=== PATIENT | female | born 1960 | race Caucasian/White ===

== ENCOUNTER 2025-04-07 09:39 | Day surgery (SDC) | payer OTHER ==
[2025-04-07] VITALS (21 sets, daily range): BP systolic 96–155; BP diastolic 55–108
[~2025-04-07] VITALS: Ht 172.7 cm; Wt 81.2 kg
[~2025-04-07 09:39] MED LIST: DOCU100 PO; FERSU300 PO; HYDHCL25 PO; MIRALAX17 GM PO; MULVITA PO; Percocet 5-3251 EACH PO; Prinivil10 MG PO; VALACYCLOVIR1000 MG PO; VENL37.5 PO; VENL75ER PO
--- NOTE | 2025-04-07 11:39 | NUR ---
PRE PROCEDURE NOTE PT A&OX4, BREATHING RA, VSS, NO COMPLAINTS. Ambulatory in Day Surgery Patient confirms NPO status and agrees with scheduled surgery. Pre-Op teaching done. Pt verbalizes understanding.
--- NOTE | 2025-04-07 11:54 | NUR ---
04/07/25 1155 Verena Dykes CONFIRMED AND REVIEWED H&P, MEDCICATIONS, ALLERGIES, MEDICAL HISTORY, RESPIRATORY HISTORY, VITAL SIGNS, 3-LEAD EKG, CONSENTS, AND PHYSICIAN ORDERS. PATIENT CONFIRMS NPO STATUS AND AGREES WITH SCHEDULED PROCEDURE. MONITOR INTACT WITH CONTINUOUS PULSE OXIMETRY, CAPNOGRAPHY, 3-LEAD EKG, INTERMITTENT BP. SUPPLEMENTAL O2 TO BE TITRATED THROUGHOUT PROCEDURE TO MAINTAIN O2 SATURATION ABOVE 90%. PATIENT DETERMINED TO BE ASA APPROPRIATE FOR PROPOFOL SEDATION PRIOR TO START OF PROCEDURE BY DR. MCADAMS.
--- NOTE | 2025-04-07 13:06 | NUR ---
Patient up to Ambulate independently. Gait steady. Discharge instructions reviewed with patient. Patient verbalizes understanding. Copy given to patient to take home. Patient States Post-Procedure ride home has been arranged. Discharged via wheelchair to private car for ride home. PT TOLERATING PO. REPORTS READY TO GO HOME.
== END 2025-04-07 13:06 | disposition home or self-care (01) ==
LOC: ORSCMMR 09:39 → ORD 11:30 → ORSCMMR 11:30 → ORD 11:45 → ORSCMMR 13:06
PROVIDERS: Internal Medicine Gastroenterology
PROC: 0DBK8ZX Excision of Ascending Colon, Via Natural or Artificial Opening Endoscopic, Diagnostic (ICD-10-PCS; principal; 2025-04-07 10:45)
PROC: 0DBN8ZX Excision of Sigmoid Colon, Via Natural or Artificial Opening Endoscopic, Diagnostic (ICD-10-PCS; principal; 2025-04-07 10:45)
DX: Z12.11 Encounter for screening for malignant neoplasm of colon (principal); Z86.0100 Personal history of colon polyps, unspecified; D12.2 Benign neoplasm of ascending colon; D12.5 Benign neoplasm of sigmoid colon; I10 Essential (primary) hypertension; Z79.899 Other long term (current) drug therapy
CPT/HCPCS: 88305; J2704; J7120